=== PATIENT | male | born 1950 | race Caucasian/White ===

== ENCOUNTER → 2017-10-05 09:12 | Outpatient (POV) | payer OTHER, SELFPAY | PROVIDERS: Family Provider Nurse Practitioner Family; Visit Provider Dermatology | DX: Z00.00 Encounter for general adult medical examination without abnormal findings (principal) ==

== ENCOUNTER → 2017-11-14 11:00 | Outpatient (REF) | payer MEDICARE, SELFPAY | LOC: LAB 11:00 | PROVIDERS: Visit Provider Podiatrist | DX: B35.1 Tinea unguium (principal) | CPT/HCPCS: 87102; 87206; 87220 ==

== ENCOUNTER → 2018-02-21 13:57 | Outpatient (POV) | payer MEDICARE, SELFPAY | PROVIDERS: Family Provider Nurse Practitioner Family; PCP Family Medicine | DX: Z00.00 Encounter for general adult medical examination without abnormal findings (principal) ==

== ENCOUNTER → 2018-04-10 08:36 | Outpatient (CLI) | payer MEDICARE, SELFPAY ==
--- NOTE | 2018-04-10 08:40 | XR_ITS ---
XR foot wt bearing RT 3V HISTORY: ITS.REASON: pain ORDERING PHYSICIAN: Gela Tapia DPM PATIENT AGE: 67 years COMPARISON: None FINDINGS: There are mild hypertrophic changes of the distal aspect of the first metatarsal with some minimal subarticular cystic changes laterally and dorsally. Normal alignment. No fracture or dislocation. There is widening of the mid shaft of the third metatarsal consistent no fracture. Normal alignment. IMPRESSION: 1. Mild hypertrophic changes of the distal first metatarsal with small subarticular cyst. 2. Healed fracture of the third metatarsal
--- NOTE | 2018-04-10 08:40 | XR_ITS ---
XR foot wt bearing LT 3V HISTORY: ITS.REASON: pain ORDERING PHYSICIAN: Gela Tapia DPM PATIENT AGE: 67 years COMPARISON: None FINDINGS: There are minor osteoarthritic changes of the first metatarsophalangeal joint. A subarticular cyst is present involving the proximal and lateral aspect of the proximal phalanx of the great toe measuring 7 mm. Subarticular cystic changes also involve the distal aspect of the first metatarsal. No fracture or dislocation. No bony erosive process. IMPRESSION: Mild osteoarthritis of the first MTP joint with subarticular cysts
== END ==
PROVIDERS: PCP Family Medicine; Visit Provider Podiatrist
DX: M25.50 Pain in unspecified joint (principal)
CPT/HCPCS: 73630

== ENCOUNTER → 2019-02-07 12:57 | Outpatient (CLI) | payer MEDICARE, SELFPAY | PROVIDERS: Visit Provider Podiatrist | DX: B35.1 Tinea unguium (principal) | CPT/HCPCS: 87220 ==

== ENCOUNTER 2019-02-20 13:40 | Outpatient (RCR) | payer MEDICARE, SELFPAY ==
--- NOTE | 2019-02-20 14:56 | HMH.PTOPEV ---
PT Outpatient Evaluation Rehab PT Outpatient Evaluation Start: 02/20/19 13:53 Freq: Status: Active Protocol: Document 02/20/19 14:46 [place] (Rec: 02/20/19 14:55 [place] [id number]) Electronically Signed By Pepe Srivastava, PT 02/20/19 14:46 Outpatient Therapy Subjective History Subjective History Pt is 68 yowm who presents with c/o intermittent cervical spine and left UE pain/ tingling x ~ 6 mos. He reports symptoms are worse with cervical extension, especially desk work. He also reports symptoms in the left UE are limited to anterior elbow and feels like an uncomfortable itch mainly. He reports PMH of DDD, HL, hypothyroid, prior low back pain. Chief Complaint Pain,Paresthesia Symptom Type Ache,Tingling Symptoms Relieved By Rest/Positioning Symptoms Aggravated By Lifting Prior Functional Limitations None Current Functional Limitations Desk Work/Reading Symptom Description Activity Dependent Level of pain today (0-10) 0 Pain scale - at its worst (0-10) 2 Cervical Eval Flexibility Deficits Upper Trapezius Muscle Length (R) Mild Tightness,(L) Mild Tightness Passive Joint Mobility Cervical PIVM Dec: R C4/5 L C4/5 R C5/6 L C5/6 R C6/7 L C6/7 R C7/T1 L C7/T1 WNL: R OA L OA R AA L AA R C2/3 L C2/3 R C3/4 L C3/4 AROM Cervical Spine Extension Active Range of 0-60 Motion (degrees) Cervical Spine Flexion Active Range of 0-50 Motion (degrees) Cervical Spine Right Lateral Flexion 0-50 Active Range of Motion (degrees) Cervical Spine Left Lateral Flexion 0-45 Active Range of Motion (degrees) Cervical Spine Right Rotation Active 0-65 Range of Motion (degrees) Cervical Spine Left Rotation Active 0-60 Range of Motion (degrees) MMT Bilateral Deltoid (C5) 5 Normal Biceps Brachii Strength
== END 2019-02-20 13:45 | disposition home or self-care (01) ==
LOC: PT 13:40
PROVIDERS: Visit Provider Family Medicine
DX: M54.12 Radiculopathy, cervical region (principal)
CPT/HCPCS: 97163

== ENCOUNTER → 2019-03-01 14:38 | Outpatient (CLI) | payer SELFPAY ==
--- NOTE | 2019-03-01 14:46 | CT_ITS ---
PROCEDURE: CT HEART W CALCIUM SCORE CLINICAL HISTORY: SCREENING COMPARISON: No exams were available for comparison TECHNIQUE: Axial images obtained with sagittal and coronal reformats. All CT scans at the facility use one or more dose reduction, viz: automated exposure control, ma/kV adjustment per patient size (including targeted exams where dose is matched to indication, i.e. head), or iterative reconstruction technique. FINDINGS: The coronary artery calcium score is 732 indicating extensive plaque burden with very high cardiovascular disease risk. No pertinent incidental findings. IMPRESSION: Extensive plaque burden with very high cardiovascular disease risk Dictated by: Avila Parada MD 03/02/2019 06:25 Electronically signed by Avila Parada MD in [place] 03/02/2019 06:25
== END ==
PROVIDERS: PCP Family Medicine; Visit Provider Internal Medicine Cardiovascular Disease
DX: Z13.6 Encounter for screening for cardiovascular disorders (principal)
CPT/HCPCS: 75571

== ENCOUNTER → 2019-03-18 09:52 | Outpatient (CLI) | payer MEDICARE, SELFPAY ==
--- NOTE | 2019-03-18 | CA_ITS ---
APPROVED REPORT Exam: Exercise Treadmill Technologist: Di Brunner Ht: 5 ft 10 in Wt: 210 lbs BSA: 2.13 m2 HR: 73 bpm BP: 167/99 mmHg Indications: Chest pain, elevated calcium score Medical History Medications: Aspirin,,,,, Metoprolol,,,,, Synthroid,,,,, Vitamins,,,,, Prilosec,,,,, Crestor,,,,, ClonAZEPAM,,,,, Co Q10,,,,, Stress Test Details Test: Kike HR Resting HR: 84 bpm Max Heart Rate (APMHR): 154 bpm Max HR Achieved: 178 bpm Target HR (85% APMHR): 130 bpm % of APMHR: 115 Recovery HR: 96 bpm BP Resting BP: 167.0/99.0 mmHg Max BP: 177.0/95.0 mmHg Recovery BP: 161.0/94.0 mmHg ECG Clinical Exercise duration: 08:00 min Highest Stage Achieved: Exercise capacity: 10.1 METs Stress ECG Conclusion Resting ECG: Sinus Rhythm Kike Protocol completed. Patient exercised 8:00. Test stopped due to leg fatigue. Symptoms: Leg fatigue. No chest pain, or shortness of breath. Arrhythmias/Ectopy: Occasional PVC. Occasional PAC. ST-T Changes: Less than 1.[address] Depression. Conclusion: Images to follow. Electronically signed by : Pablito Vu, 03/18/2019 21:27:33
--- NOTE | 2019-03-18 09:54 | NM_ITS ---
APPROVED REPORT Exam: Nuclear Stress Test Indication: Chest pain, Palpitations, HTN, CAD, High Cholesterol, Family history Patient Location: Outpatient Stress Tech: Di Brunner [place] Tech:Josselin Rivero, ARRT, RT (R)(N) Ht: 5 ft 10 in Wt: 210 lbs HR: 73 bpm BP: 167/99 mmHg BSA: 2.13 m2 BMI: 30.1 History: Chest pain, Palpitations, HTN, CAD, High Cholesterol, Family history Procedure: Patient exercised on Kike protocol 8:00 minutes and sec, resting heart rate 73 bpm, resting blood pressure 148/87 mmHg, with exercise maximum heart rate achived was 178 bpm which is Greater than 85 % of the maximum predicted heart rate and blood pressure was 165/90 mmHg. Test was stopped due to leg fatigue. Patient denied any complaint of chest pain. Patient has Good exercise capacity, achieved 10.1 METs of workload on treadmill, the blood pressure response to exercise was Adequate.. Electrocardiogram Resting electrocardiogram showed sinus rhythm, with exercise there is less than 1.[address] segment depression noted from the baseline EKG. The EKG portion of the exercise Myoview is negative for ischemia. Cardiac Stress and Resting SPECT Images: Cardiac Stress and Resting SPECT images were obtained using technetium 99m Myoview 29.9 mCi stress and 10.37 mCi at rest. Gated SPECT with analysis of segmental wall motion and calculation of the ejection fraction also done. Cardiac stress and resting SPECT images show uniform myocardial activity without segmental perfusion abnormality, computer derived ejection fraction is over 65% with no regional wall motion abnormality, right ventricle is normal size and contractility. Conclusion: 1. The EKG portion of the exercise Myoview is negative for ischemia, patient has good exercise capacity achieved 10.1 mets of workload on treadmill, the blood pressure response to exercise was adequate, there was no exercise-induced chest discomfort. 2. No scintigraphic evidence of reversible ischemia seen, computer derived ejection fraction is over 65% with no regional wall motion abnormality, right ventricle is normal size and contractility. 3. Normal exercise Myoview study. Electronically signed by : Pablito Vu, 03/18/2019 21:30:14
--- NOTE | 2019-03-18 09:54 | CA_ITS ---
APPROVED REPORT EXAM: Comprehensive 2D, Doppler, and color-flow Echocardiogram Hoop Flaring Machine Operator: Socorro Zaragoza RVT Ht: 5 ft 10 in Wt: 212lbs BSA: 2.14 BP: 155/92 mmHg Indications: Chest Pain, CAD, Hyperlipidemia, Hypertension,Elevated calicum score 2D Dimensions LVOT 2.50 cm (M/F) 1.5-2.5 M-Mode Dimensions RVDd 1.50 cm (0.9-2.6) LA Diam 3.50 cm (1.9-4.0) LVDd 6.00 cm (3.5-5.7) Ao Diam 2.60 cm (2.0-3.7) LVDs 3.90 cm (3.5-5.7) AV Cusp 2.40 cm (1.5-2.6) IVSd 0.90 cm (0.6-1.1) PWd 0.90 cm (0.6-1.1) EF (Teich) 63.40% FS 35.00% EDV (Teich) 180.00 mL ESV (Teich) 65.90 mL LV Diastology E/A Ratio 0.8 MED E' 7.12 (< 7 cm/sec) E'/MED E' Ratio 9.10 (>14) LAT E' 9.55 (<10 cm/sec) E/LAT E' Ratio 6.80 (>14) Aortic Valve AoV Peak Lamont. 82.90 (50-130 cm/s) AO Peak GR. 3.00 mmHg Mitral Valve MV E Max Lamont. 64.70 (40-130 cm/s) MV A Velocity 79.00 (40-130 cm/s) E/A Ratio 0.80 Pulmonary Valve PA Accel Time 127.00 (>120 msec) Tricuspid Valve TR P. Velocity 289.00 cm/s Left Ventricle Left atrium is mildly enlarged, left ventricle is normal size, mild concentric left ventricular hypertrophy, visually estimated ejection fraction 55% with no regional wall motion abnormality, grade 1 diastolic dysfunction seen without tissue Doppler evidence of raise left atrial pressure. Right Ventricle Right atrium and right ventricular normal size and contractility. Aortic Valve Aortic valve is thickened and calcified leaflet continue to display good mobility, there is no aortic stenosis aortic insufficiency. Mitral Valve Mitral valve is grossly normal, there is mild mitral regurgitation. Tricuspid Valve Tricuspid valve is grossly normal, there is mild tricuspid regurgitation. Pulmonic Valve Pulmonic valve is poorly visualized. Great Vessels Aortic root is normal size. Pericardium No significant pericardial effusion noted. Conclusion 1. Mildly enlarged left atrium, normal left ventricular size, mild concentric left ventricular hypertrophy, visually estimated ejection fraction 55% with no regional wall motion abnormality, grade 1 diastolic dysfunction seen without tissue Doppler evidence of raise left atrial pressure. 2. Mild mitral and tricuspid regurgitation 3. No significant pericardial effusion noted. Electronically signed by : Pablito Vu, 03/19/2019 06:03:18
--- NOTE | 2019-03-18 12:39 | HMH.ITSHM ---
Current Home Medications as stated by this patient Ángel Farris or statement services representative. []METOPROLOL CRESTOR PRILOSEC SYNTHROID CLONAZEPAM ASA VITAMINS COQ10
[2019-03-18 12:54] LABS: Alanine Aminotransferase 38 U/L (12-78); Alkaline Phosphatase 44 U/L (46-116); Aspartate Amino Transferase 21 U/L (15-37); Bilirubin,Direct 0.1 mg/dL (0.0-0.2); Bilirubin,Indirect 0.4 mg/dL (0.0-0.9); Bilirubin,Total 0.5 mg/dL (0.2-1.0); Chol/HDL Ratio 3.6 (1-3.5); Cholesterol 146 mg/dL (140-200); HDL Cholesterol 41 mg/dL (27-67); LDL Cholesterol 80 mg/dL (0-130); Total Protein,Serum 6.6 gm/dL (6.4-8.2); Triglycerides 124 mg/dL (30-200); VLDL Cholesterol 25 mg/dL (0-40)
== END ==
PROVIDERS: PCP Family Medicine; Visit Provider Internal Medicine Cardiovascular Disease
DX: E78.5 Hyperlipidemia, unspecified (principal); G47.9 Sleep disorder, unspecified; I10 Essential (primary) hypertension; K21.9 Gastro-esophageal reflux disease without esophagitis; R06.83 Snoring; R07.89 Other chest pain; R40.0 Somnolence; R93.1 Abnormal findings on diagnostic imaging of heart and coronary circulation; R93.89 Abnormal findings on diagnostic imaging of other specified body structures; Z82.49 Family history of ischemic heart disease and other diseases of the circulatory system; R07.9 Chest pain, unspecified
CPT/HCPCS: 36415; 78452; 80061; 80076; 93017; 93306; A9502

== ENCOUNTER → 2019-03-19 13:23 | Outpatient (CLI) | payer MEDICARE, SELFPAY | PROVIDERS: PCP Family Medicine; Visit Provider Internal Medicine Cardiovascular Disease | DX: G47.33 Obstructive sleep apnea (adult) (pediatric) (principal) | CPT/HCPCS: 95806 ==

== ENCOUNTER → 2019-05-14 11:56 | Outpatient (POV) | payer MEDICARE, SELFPAY | PROVIDERS: Visit Provider Dermatology | DX: Z00.00 Encounter for general adult medical examination without abnormal findings (principal) ==

== ENCOUNTER → 2019-05-20 15:09 | Outpatient (CLI) | payer MEDICARE, SELFPAY | PROVIDERS: PCP Family Medicine; Visit Provider Urology | DX: G47.33 Obstructive sleep apnea (adult) (pediatric) (principal); I49.3 Ventricular premature depolarization; R94.31 Abnormal electrocardiogram [ECG] [EKG]; Z99.89 Dependence on other enabling machines and devices | CPT/HCPCS: 93270 ==

== ENCOUNTER → 2019-06-20 11:43 | Outpatient (CLI) | payer MEDICARE, SELFPAY ==
--- NOTE | 2019-06-20 11:58 | XR_ITS ---
PROCEDURE: XR RIBS LT MIN 3V W CXR1V CLINICAL INDICATION: LT RIB PAIN COMPARISON: CXR CHEST(2 VIEWS-NOT PORTABLE) from 05/05/2016 FINDINGS: A frontal view of the chest shows no acute finding. Multiple views of the left ribs were obtained. No acute findings. IMPRESSION: No acute findings. Dictated by: Avila Parada MD 06/20/2019 16:51 Electronically signed by Avila Parada MD in [place] 06/20/2019 16:51
== END ==
PROVIDERS: PCP Family Medicine; Visit Provider Nurse Practitioner Family
DX: R07.81 Pleurodynia (principal)
CPT/HCPCS: 71101

== ENCOUNTER → 2019-12-25 13:28 | Outpatient (POV) | payer MEDICARE, SELFPAY | DX: Z00.00 Encounter for general adult medical examination without abnormal findings (principal) ==

== ENCOUNTER → 2020-01-01 15:02 | Outpatient (POV) | payer MEDICARE, SELFPAY | DX: Z00.00 Encounter for general adult medical examination without abnormal findings (principal) ==

== ENCOUNTER → 2020-01-06 15:58 | Outpatient (CLI) | payer MEDICARE, SELFPAY ==
--- NOTE | 2020-01-06 16:05 | XR_ITS ---
PROCEDURE: XR LUMBAR SPINE MIN 4V CLINICAL INDICATION: ACUTE MIDLINE LOW BACK PAIN W/O SCIATICA COMPARISON: No exams were available for comparison FINDINGS: No fracture or dislocation. No lytic or blastic change. There is normal mineralization. There is degenerative disc disease in the lower thoracic and lumbar spine. This is worse at the L4-5 level. There is 3 mm anterolisthesis of L3. Facet arthritic changes are present from L2-S1. Other findings:None. IMPRESSION: Lumbar spondylosis with degenerative disc disease and facet arthritic change Dictated by: Avila Parada MD 01/06/2020 16:34 Electronically signed by Avila Parada MD in [place] 01/06/2020 16:34
== END ==
PROVIDERS: PCP Family Medicine; Visit Provider Nurse Practitioner Family
DX: M54.5 Low back pain (principal)
CPT/HCPCS: 72110

== ENCOUNTER → 2020-09-22 12:54 | Outpatient (POV) | payer MEDICARE, SELFPAY | PROVIDERS: Visit Provider Dermatology | DX: Z00.00 Encounter for general adult medical examination without abnormal findings (principal) ==

== ENCOUNTER → 2020-10-28 14:38 | Outpatient (CLI) | payer MEDICARE, SELFPAY | PROVIDERS: Visit Provider Internal Medicine Gastroenterology | DX: Z01.812 Encounter for preprocedural laboratory examination (principal); Z20.822 Contact with and (suspected) exposure to COVID-19; Z12.11 Encounter for screening for malignant neoplasm of colon | CPT/HCPCS: U0003 ==

== ENCOUNTER 2020-10-30 07:03 | Day surgery (SDC) | payer MEDICARE, SELFPAY ==
[2020-10-21 13:08] VITALS: BMI 30.2
[2020-10-30] VITALS (9 sets, daily range): BP systolic 92–155; BP diastolic 65–92; PULSE 55–69; RESP 16–18; TEMP 36.3–36.7; O2SAT 93–99
--- NOTE | 2020-10-30 08:05 | P.PN_ITS ---
[facility] Anesthesia Checklist - Structural Data Admitted From: Home Planned Operative Procedure/s: colonoscopy Consent for Planned Operative Procedure(s) Verified: Yes - Airway Assessment C-Spine Mobility Assessed: Yes TMJ Mobility Assessed: Yes Dentition: Good Dentition - Neurological Assessment Level of Consciousness: Awake, Alert, Appropriate - Anesthesia Plan Anesthesia Risk discussed: Yes Anesthesia Plan: Verified ASA Class: II Anesthesia Type: MAC [facility] History I have reviewed the patient's past medical history: Yes Medical History: Reports:: Arrhythmia, Cancer (skin/nose), Congenital Heart Disease, Gastroesophageal Reflux Disease(GERD), Hyperlipidemia, Hypertension Denies:: Diabetes Mellitus Type 1, Diabetes Mellitus Type 2, Internal Pacemaker, MRSA, Seizures *Have you ever received a pneumonia vaccine?: Yes *Have you received a flu vaccine this season?: Yes Other Medical History: Reports: Thyroid Disease Anesthesia experience/problems:: none Other Surgeries: Yes: No Previous Surgery, Colonoscopy. No: Pacemaker Amputation: No Fractures: No - *Social History Last grade of school completed: Advanced degree Smoking Status: Never smoker # Packs/Day (cigarettes): 0 #Yrs smoked (if former smoker): 0 Alcohol Intake: never Alcohol Intake Frequency:: a few times a month Substance Use Type: denies use *Occupational Status:: retired Housing: house Household Members: spouse *Travel in the last 8 weeks: Inside the [place] Family Hx:: Coronary Artery Disease, Heart Attack
--- NOTE | 2020-10-30 08:07 | P.PCN_ITS ---
[facility] Procedure Note Procedure Note:: Colonoscopy Procedure Report: Colonoscopy Endoscopist: Olegario Dalton II, MD Referring physician: Antoine Fernandez MD Date of Procedure: October 30, 2020 Equipment: Olympus 190 variable stiffness pediatric colonoscope Sedation: MAC sedation Indication: Mr. Farris is a 70-year-old gentleman who is here for follow-up screening/surveillance colonoscopy. The patient had a colonoscopy 12 years ago and 7 years ago (in [facility] with Dr. Evan Shah DO) and each time had a diminutive polyp removed. The last time this was non-adenomatous (mucosal prolapse polyp). The patient does have some gassiness and rumbling with minor bloating. He does have intermittent hemorrhoidal issues. He reports no abdom inal pain, weight loss, change in his bowel habits or rectal bleeding. He reports no family history of colon cancer. Procedure: Prior to the procedure, a history and physical exam was performed, and patient's medications and allergies were reviewed. The risks, benefits and alternatives of the sedation and procedure were discussed with the patient. All questions were answered and informed consent was obtained. The patient was brought to the procedure room. Patient identification and proposed procedure were verified by the physician and the nurse. The patient was placed in a left lateral decubitus position and the scope was passed under direct vision. Throughout the procedure, the patient's blood pressure, pulse, and oxygen saturations were monitored continuously. The colonoscopy was accomplished without difficulty. The patient tolerated the procedure well. Findings: On digital rectal examination there was normal rectal tone. There were no external hemorrhoids. The prostate was 2+, very mildly firm but smooth, symmetric without nodules. The colonoscope was introduced through the anal canal to the rectum and advanced to the cecum. The ileocecal valve and appendiceal orifice were identified. The scope was advanced a short distance into the ileum which appeared grossly normal. The scope was then withdrawn into the colon. The cecum, ascending and transverse colon and mucosa were grossly normal. There were mildly scattered diverticuli throughout the descending and sigmoid colon (LEFT colon). The rectum itself was normal. Upon retroflexion within the rectum there were grade 1-2 internal hemorrhoids. The preparation was excellent throughout with [place] Preparation Score of 9. The cecal time was 10 minutes. Impression: 1. Mild left-sided diverticulosis 2. Grade 1-2 internal hemorrhoids Plan: The patient will not require screening/surveillance colonoscopy again for 10 years by [facility] guidelines. I would encourage fiber supplementation on a long-term daily maintenance basis.
== END 2020-10-30 09:30 | disposition home or self-care (01) ==
LOC: OUTP 07:05
PROVIDERS: PCP Family Medicine; Visit Provider Internal Medicine Gastroenterology
PROC: 0DJD8ZZ Inspection of Lower Intestinal Tract, Via Natural or Artificial Opening Endoscopic (ICD-10-PCS; CPT 45378; principal; 2020-10-30 08:00)
DX: Z12.11 Encounter for screening for malignant neoplasm of colon (principal); Z86.010 Personal history of colon polyps; K57.30 Diverticulosis of large intestine without perforation or abscess without bleeding; K64.0 First degree hemorrhoids; I49.9 Cardiac arrhythmia, unspecified; Z85.828 Personal history of other malignant neoplasm of skin; I51.9 Heart disease, unspecified; K21.9 Gastro-esophageal reflux disease without esophagitis; E78.5 Hyperlipidemia, unspecified; I10 Essential (primary) hypertension; E07.9 Disorder of thyroid, unspecified; Z79.899 Other long term (current) drug therapy
CPT/HCPCS: G0105

== ENCOUNTER → 2021-09-07 09:31 | Outpatient (CLI) | payer MEDICARE, SELFPAY ==
--- NOTE | 2021-09-07 09:34 | CA_ITS ---
FINAL REPORT TECHNIQUE: Color Doppler, duplex Doppler and bhatti scale sonography of the bilateral neck arterial vasculature was performed. Velocities were measured in the carotid arteries. Stenosis evaluation based on the validated velocity criteria. CLINICAL HISTORY: SYNCOPE,HTN,HLD FINDINGS: The peak systolic velocity of the right common carotid artery is 121 cm/s. The peak systolic velocity of the right internal carotid artery is 124 cm/s and end diastolic velocity 41 cm/s. The ICA/CCA ratio is 1.17. A small amount of plaque is present. The right external carotid artery is patent. The right vertebral artery is patent with antegrade flow. The peak systolic velocity of the left common carotid artery is 140 cm/s. The peak systolic velocity of the left internal carotid artery is 66 cm/s and end diastolic velocity 24 cm/s. The ICA/CCA ratio is 0.65. A small amount of plaque is present. The left external carotid artery is patent.The left vertebral artery is patent with antegrade flow. IMPRESSION: Less than 50% bilateral carotid stenoses. Bilateral patent vertebral arteries with antegrade flow. If indicated, CTA or MRA could further evaluate. Reviewed, Interpreted and Dictated by Luan Martinez III, MD Transcribed by Nara Glass Authenticated by Luan Martinez III, MD on 09/07/2021 11:29:51 AM [facility]
== END ==
PROVIDERS: PCP Nurse Practitioner Family; Visit Provider Nurse Practitioner Family
DX: R55 Syncope and collapse (principal); I10 Essential (primary) hypertension; E78.5 Hyperlipidemia, unspecified
CPT/HCPCS: 93880

== ENCOUNTER → 2021-09-29 13:55 | Outpatient (CLI) | payer MEDICARE, SELFPAY ==
--- NOTE | 2021-09-29 13:56 | CT_ITS ---
FINAL REPORT CLINICAL HISTORY: cheng FINDINGS: Thin section axial CT with IV contrast supplemented with multiplanar reconstruction under CT angiogram protocol. This study was performed with techniques to keep radiation doses as low as reasonably achievable (ALARA). Individualized dose reduction techniques using automated exposure control or adjustment of mA and/or kV according to the patient's size were employed. NASCET criteria was utilized during interpretation. There is no cervical mass or adenopathy. There is lobular mucoperiosteal thickening in the left maxillary sinus. Aortic arch: Arch shows no significant narrowing. Great vessel origins are widely patent. Right carotid: No significant stenosis is seen of the cervical common or internal carotid artery. Left carotid: No significant stenosis is seen of the cervical common or internal carotid artery. Vertebral: Left vertebral artery is dominant. No significant stenosis is present. IMPRESSION: No significant stenosis. Reviewed, Interpreted and Dictated by Moe Pena MD Transcribed by Francisco Mast Authenticated by Moe Pena MD on 09/29/2021 06:04:14 PM [facility]
== END ==
PROVIDERS: PCP Nurse Practitioner Family; Visit Provider Physician Assistant
DX: I25.10 Atherosclerotic heart disease of native coronary artery without angina pectoris (principal)
CPT/HCPCS: 70498; Q9967

== ENCOUNTER → 2022-05-03 10:12 | Outpatient (POV) | payer MEDICARE, SELFPAY | PROVIDERS: Visit Provider Dermatology | DX: Z00.00 Encounter for general adult medical examination without abnormal findings (principal) ==

== ENCOUNTER → 2023-01-24 13:04 | Outpatient (CLI) | payer MEDICARE, SELFPAY ==
--- NOTE | 2023-01-24 13:08 | XR_ITS ---
FINAL REPORT CLINICAL HISTORY: ACUTE PAIN, CLICKING, ACHEY FINDINGS: Left knee Three views were obtained. There is no acute fracture or dislocation. The joint spaces appear normal. No joint effusion is identified. No soft tissue abnormality is identified. IMPRESSION: No acute process. Reviewed, Interpreted and Dictated by Moe Pena MD Transcribed by Nara Glass Authenticated and [facility]
== END ==
PROVIDERS: PCP Nurse Practitioner Family; Visit Provider Nurse Practitioner Family
DX: M25.562 Pain in left knee (principal)
CPT/HCPCS: 73562

== ENCOUNTER 2023-08-30 13:30 | Outpatient (CLI) | payer MEDICARE, SELFPAY ==
[2023-08-30 14:04] LABS: Basophils % 0.8 % (0.1-2.0); Eosinophils # 0.2 K/mm3 (0.0-0.4); Eosinophils % 3.3 % (0.1-12.0); Hematocrit 52.6 % (42.0-52.0); Hemoglobin 17.1 g/dL (14.1-18.0); Lymphocytes # 1.6 K/mm3 (0.7-4.5); Lymphocytes % 33.9 % (10-50); Mean Corpuscular HGB Conc 32.5 g/dL (31.8-35.4); Mean Corpuscular Hemoglobin 32.7 pg (27.0-31.2); Mean Corpuscular Volume 100.6 fl (80-94); Mean Platelet Volume 9.3 fl (7.4-10.4); Monocytes # 1.1 K/mm3 (0.1-1.0); Monocytes % 22.7 % (1.7-9.3); Neutrophils # 1.9 K/mm3 (1.8-7.8); Neutrophils % 39.3 % (37.0-80.0); Platelet Count 166 K/mm3 (142-424); Red Blood Count 5.23 M/mm3 (4.60-6.20); Red Cell Distribution Width 13.2 % (11.5-17.5); White Blood Count 4.8 K/mm3 (4.8-10.8)
[2023-08-30 14:07] LABS: MANUAL DIFFERENTIAL MANUAL DIFFERENTIAL (MANUAL DIFF)
[2023-08-30 14:24] LABS: Chloride 106 mmol/L (98-107); Potassium 4.3 mmoL/L (3.5-5.1); Sodium 140 mmol/L (136-145)
[2023-08-30 14:26] LABS: Blood Urea Nitrogen 12 mg/dl (9-20); Estimated Glomerular Filt Rate 83 ml/min (>60); GFR (African American) 101 ML/MIN (>60)
[2023-08-30 14:27] LABS: Alanine Aminotransferase 48 U/L (12-78); Albumin Level 4.4 g/dl (3.5-5.0); Albumin/Globulin Ratio 2.3 (1.1-1.8); Alkaline Phosphatase 51 U/L (38-126); Anion Gap 9.3 mEq/L (5-15); Aspartate Amino Transferase 41 U/L (17-59); Bilirubin,Total 0.6 mg/dl (0.2-1.3); Calcium 9.3 mg/dl (8.4-10.2); Carbon Dioxide 29 mmol/L (22.0-30.0); Cholesterol 169 mg/dl (140-200); Globulin 1.9 g/dL (1.3-3.2); Glucose 90 mg/dl (74-100); Total Protein,Serum 6.3 g/dl (6.3-8.2); Triglycerides 174 mg/dl (30-150); VLDL Cholesterol 35 mg/dL (0-40)
[2023-08-30 14:28] LABS: Chol/HDL Ratio 4.6 (1-3.5); HDL Cholesterol 37 mg/dl (40-60)
[2023-08-30 14:39] LABS: Direct LDL Cholesterol 87.95 mg/dL (100-129)
[2023-08-30 14:43] LABS: Free T4 (Free Thyroxine) 1.27 ng/dl (0.78-2.19)
[2023-08-30 14:59] LABS: Thyroid Stimulating Hormone 0.68 uIU/mL (0.465-4.68)
[2023-08-30 15:29] LABS: Eosinophils % 4 % (0-3); Lymphocytes % 30 % (10-50); Monocytes % 9 % (2-9); Neutrophils % 57 % (42-76); Total Cells Counted 100
[2023-08-30 15:30] LABS: Platelet Estimate Normal; RBC Morphology Normal
[2023-08-31 10:59] LABS: HCV Ab Non Reactive (Non Reactive)
== END 2023-08-30 23:59 ==
LOC: LAB.DROPOF 13:31
PROVIDERS: PCP Internal Medicine; Visit Provider Internal Medicine
DX: R40.0 Somnolence; I25.10 Atherosclerotic heart disease of native coronary artery without angina pectoris; Z13.220 Encounter for screening for lipoid disorders; E03.9 Hypothyroidism, unspecified; Z13.29 Encounter for screening for other suspected endocrine disorder; Z12.5 Encounter for screening for malignant neoplasm of prostate; Z11.59 Encounter for screening for other viral diseases; Z91.89 Other specified personal risk factors, not elsewhere classified; H91.90 Unspecified hearing loss, unspecified ear; Z79.899 Other long term (current) drug therapy
CPT/HCPCS: 80053; 80061; 84439; 84443; 85007; 85025; G0103

== ENCOUNTER 2023-10-04 10:21 | Outpatient (POV) | payer MEDICARE, SELFPAY | END 2023-10-04 23:59 | disposition home or self-care (01) | LOC: SC 10:21 | PROVIDERS: Visit Provider Specialist/Technologist | DX: Z00.00 Encounter for general adult medical examination without abnormal findings (principal) ==

== ENCOUNTER 2023-10-09 07:17 | Outpatient (CLI) | payer MEDICARE, SELFPAY ==
--- NOTE | 2023-10-09 07:18 | NM_ITS ---
APPROVED REPORT Exam: Nuclear Stress Test Indication: Chest pain, HTN, High cholesterol, Family history Patient Location: Outpatient Stress Tech: Di Brunner [place] Tech:Josselin Rivero, ARRT, RT (R)(N) Ht: 5 ft 10 in Wt: 207 lbs HR: 72 bpm BP: 149/92 mmHg BSA: 2.12 m2 TID: 1.26 BMI: 29.6 History: Chest pain, HTN, High cholesterol, Family history Procedure: Patient exercised on Kike protocol 8:40 minutes and sec, resting heart rate 72 bpm, resting blood pressure 149/92 mmHg, with exercise maximum heart rate achived was 137 bpm which is 92 % of the maximum predicted heart rate and blood pressure was 180/88 mmHg. Test was stopped due to SOB. Patient denied any complaint of chest pain. Patient has exercise capacity, achieved 10.1 METs of workload on treadmill, the blood pressure response to exercise was . Cardiac Stress and Resting SPECT Images: Cardiac Stress and Resting SPECT images were obtained using technetium 99m Myoview 30.7 mCi stress and 10.31 mCi at rest. Resting and stress imaging in supine and prone positions demonstrate a medium sized, moderate, fixed perfusion defect in the basal to mid inferior LV wall. There is increased transient ischemic dilatation ratio (TID 1.26), suggestive of possible multivessel disease or balanced ischemia. Gated imaging demonstrates low-normal global LV systolic function. There is mild hypokinesis of the basal inferior LV wall. LVEF is calculated at 52%. Conclusion: Medium sized, moderate, fixed perfusion defect in the basal to mid inferior LV wall. There is increased transient ischemic dilatation ratio (TID 1.26), suggestive of possible multivessel disease or balanced ischemia. Gated imaging demonstrates low-normal global LV systolic function. There is mild hypokinesis of the basal inferior LV wall. LVEF is calculated at 52%. Electronically signed by : Lorena Reaves MD 10/11/2023 11:26:03
[2023-10-09] MEDS: SODIUM CHLORIDE 0.9% 10ML SYR (RAD ONLY) 10 ML IV ×2 (09:18)
[2023-10-09] MEDS: ISOTOPE MYOVIEW (PER STUDY) 1 DOSE IV (09:18)
--- NOTE | 2023-10-09 09:32 | CA_ITS ---
APPROVED REPORT Exam: Exercise Treadmill Technologist: Di Brunner Ht: 5 ft 10 in Wt: 213 lbs BSA: 2.14 m2 HR: 65 bpm BP: 149/92 mmHg Rhythm: NSR Indications: Chest pain, CAD Medical History Medications: Omeprazole,,,,, Levothyroxine,,,,, Aspirin,,,,, Vitamin D3,,,,, Metoprolol Succinate,,,,, ClonAZEPAM,,,,, Flaxseed Oil,,,,, Magnesium,,,,, Nitroglycerin,,,,, MeLATONIN,,,,, RoSUVASTATIN,,,,, SilDENAFIL,,,,, Stress Test Details Test: Kike HR Resting HR: 72 bpm Max Heart Rate (APMHR): 149 bpm Max HR Achieved: 137 bpm Target HR (85% APMHR): 127 bpm % of APMHR: 92 Recovery HR: 71 bpm HR response to stress: Normal HR response to stress BP Resting BP: 149.0/92.0 mmHg Max BP: 180.0/88.0 mmHg Recovery BP: 155.0/76.0 mmHg BP response to stress: Normal blood pressure response to stress. ECG Resting ECG: Normal sinus rhythm Stress EC mm horizontal ST depression Arrhythmia: PACs Recovery ECG: Return to baseline within 3 minutes of recovery Recovery Arrhythmia: PACs Clinical Exercise duration: 08:40 min Highest Stage Achieved: Exercise capacity: 10.1 METs Overall Exercise Capacity for Age: Good Stress ECG Conclusion The patient was able to exercise for a total of 8 minutes, 40 seconds. He achieved a total of 10.1 METS. He has good exercise capacity compared to age and sex matched peers. He has normal HR and BP response to exercise. Symptoms: Mild chest pain Arrhythmias/Ectopy: Occasional PACs ST-T Changes: [address] depression Conclusion: Good exercise capacity. ECG changes suggestive of ischemia at peak stress. Myoview images reported separately. Test Summary REST . . . . . . . Sitting REST . . . . . . . Standing REST 02:58 0.0 0.0 72 . 149/ 92 . . Stage 1 01:00 10.0 1.7 91 . . . . Stage 1 02:00 10.0 1.7 93 . . . . Stage 1 02:50 10.0 1.7 94 . 140/ 86 . . Stage 2 01:00 12.0 2.5 102 . . . . Stage 2 02:00 12.0 2.5 113 . . . . Stage 2 03:00 12.0 2.5 121 . 150/ 90 . . Stage 3 . . . . . . . Myoview Injected Stage 3 01:00 14.0 3.4 128 . . . . Stage 3 . . . . . . . Chest pain Stage 3 02:00 14.0 3.4 134 . . . . Stage 3 02:50 14.0 3.4 135 . 170/ 90 . Stop exercise at 08:40 RECOVERY 01:00 0.0 0.0 113 . 180/ 88 . . RECOVERY 02:00 0.0 0.0 104 . 180/ 88 . . RECOVERY 03:00 0.0 0.0 102 . 156/ 88 . . RECOVERY 04:00 0.0 0.0 74 . 156/ 88 . . RECOVERY 05:00 0.0 0.0 82 . 150/ 86 . . RECOVERY 06:00 0.0 0.0 76 . 150/ 86 . . RECOVERY 06:42 0.0 0.0 72 . 155/ 78 . . Electronically signed by : Lorena Reaves MD 10/11/2023 11:24:54
== END 2023-10-09 23:59 | disposition home or self-care (01) ==
LOC: RAD 07:18
PROVIDERS: PCP Nurse Practitioner Family; Visit Provider Physician Assistant
DX: I25.10 Atherosclerotic heart disease of native coronary artery without angina pectoris (principal)
CPT/HCPCS: 78452; 93017; 93018; A9502

== ENCOUNTER 2023-10-19 08:54 | Day surgery (SDC) | payer MEDICARE, SELFPAY ==
[2023-10-19] VITALS (14 sets, daily range): BP systolic 110–137; BP diastolic 72–97; PULSE 52–66; RESP 17–20; TEMP 36.6; O2SAT 96–100; BMI 30.4
--- NOTE | 2023-10-19 07:28 | IR_ITS ---
APPROVED REPORT Patient Location: Outpatient Crawler Tractor Operator: DIMPLE Estrada RT (R) PROCEDURES Left heart catheterization Left ventriculogram Selective coronary angiogram Drug-eluting stent deployment to the proximal and mid dominant circumflex artery Drug-eluting stent deployment to the mid LAD INDICATION Coronary artery disease, Accelerated angina pectoris, Abnormal CCTA Informed consent was obtained prior to the procedure. COMPLICATIONS NONE Estimated Blood Loss: LESS THAN 10 ML TECHNIQUE One percent lidocaine used to anesthetize the right anterior aspect of the wrist. The right radial artery was accessed via the Seldinger technique. A 6 Namibian sheath was placed in the right radial artery. 2.5 mg of Verapamil, 800 mcg of nitroglycerin, 1mg Lidocaine and 5000 U Heparin were given through the arterial sheath. The papa catheter was also used to perform left heart catheterization, left ventriculogram and selective coronary angiogram. At the end the diagnostic angiogram therapeutic heparin was administered giving a therapeutic ACT and the guide catheter was placed in the left main artery followed by Choice PT to support wire down the circumflex artery. A 3.5 x 38 mm Pavan frontier stent was deployed at 16 yessica reducing the severe tandem stenosis to 0%. SESAR-3 flow was present before and after the procedure. An additional wire was placed down the LAD and an additional 3 mm x 38 mm Pavan frontier stent was placed in the mid LAD and deployed at 14 yessica reducing the severe stenosis to 0%. SESAR-3 flow was present before and after the procedure. At the end procedure the apparatus was removed the sheath was removed and hemostasis was achieved using TR banding patient was transferred to the postop holding in stable condition ANGIOGRAPHIC RESULTS The left main artery Normal The left anterior descending artery Has proximal 20 to 30% stenosis with mid vessel tandem 60 to 70% stenosis with an additional 50% stenosis followed by an additional eccentric 40% stenosis. The distal LAD is widely patent free of disease. A large diagonal artery is widely patent. The circumflex artery Is nondominant yet still large and has tandem 70% mid vessel stenoses The right coronary artery Dominant and has proximal and mid vessel 30 and 20% stenosis The GARCIA ventriculogram reveals Normal 60% The left ventricular end-diastolic pressure 15 mmHg IMPRESSION Severe two-vessel coronary artery disease involving the mid LAD and proximal to mid large nondominant circumflex artery Successful stenting of a large nondominant circumflex artery severe disease reduced to 0% with 1 drug-eluting stent Successful stenting of the mid LAD severe disease reduced to 0% with 1 drug-eluting stent Normal ejection fraction Normal left ventricular end-diastolic pressure PLAN 1. Effient 10 mg daily plus aspirin 81 mg daily 2. LDL less than 55 to achieve that high intensity statin 3. Avoidance of tobacco products 4. Risk factor modification 5. Cardiac rehabilitation Electronically signed by : Axel You MD 10/19/2023 12:44:18
[2023-10-19 09:20] LABS: Basophils # 0.1 K/mm3 (0-0.2); Eosinophils # 0.4 K/mm3 (0.0-0.4); Eosinophils % 6.6 % (0.1-12.0); Hematocrit 50.4 % (42.0-52.0); Hemoglobin 16.6 g/dL (14.1-18.0); Lymphocytes # 1.3 K/mm3 (0.7-4.5); Lymphocytes % 24.8 % (10-50); Mean Corpuscular HGB Conc 32.9 g/dL (31.8-35.4); Mean Corpuscular Hemoglobin 32.3 pg (27.0-31.2); Mean Corpuscular Volume 98.2 fl (80-94); Mean Platelet Volume 8.9 fl (7.4-10.4); Monocytes # 0.4 K/mm3 (0.1-1.0); Monocytes % 7.3 % (1.7-9.3); Neutrophils # 3.2 K/mm3 (1.8-7.8); Neutrophils % 60.4 % (37.0-80.0); Platelet Count 146 K/mm3 (142-424); Red Blood Count 5.13 M/mm3 (4.60-6.20); Red Cell Distribution Width 13.2 % (11.5-17.5); White Blood Count 5.3 K/mm3 (4.8-10.8)
[2023-10-19 09:34] LABS: Blood Urea Nitrogen 15 mg/dl (9-20); Calcium 9.2 mg/dl (8.4-10.2); Carbon Dioxide 26 mmol/L (22.0-30.0); Chloride 105 mmol/L (98-107); Creatinine Clearance Estimated 92 mL/min (50-200); Estimated Glomerular Filt Rate 83 ml/min (>60); GFR (African American) 101 ML/MIN (>60); Glucose 99 mg/dl (74-100); Sodium 140 mmol/L (136-145)
[2023-10-19] MEDS: 0.9 % SODIUM CHLORIDE 500 ML 25 ML IV (11:20)
[2023-10-19] MEDS: HEPARIN 1,000 UNITS/500ML NS (CATH LAB) 3000 UNIT IV (11:20)
[2023-10-19] MEDS: VERAPAMIL 2.5MG/ML 2ML VIAL 2.5 MG IV (11:21)
[2023-10-19] MEDS: LIDOCAINE 1% 10ML MDV 20 ML IJ (11:21)
[2023-10-19] MEDS: HEPARIN 1,000 UNITS/ML 10ML VIAL (CATH LAB) 10000 UNIT IV (11:21)
[2023-10-19] MEDS: NITROGLYCERIN 800MCG/8ML SYR (CATH LAB) 800 MCG IA (11:21)
[2023-10-19] MEDS: MIDAZOLAM HCL 1MG/1ML 5ML VIAL 1 MG IV (12:00)
[2023-10-19] MEDS: FENTANYL 100MCG/2ML VIAL 50 MCG IV (12:00)
[2023-10-19] MEDS: IOPAMIDOL-370 (76%);100ML BOTTLE 130 ML IV (12:53)
[2023-10-19 12:56] LABS: CATHL Activated Clotting Time > 400 SEC (74-125)
== END 2023-10-19 15:12 | disposition home or self-care (01) ==
PROVIDERS: PCP Nurse Practitioner Family; Visit Provider Internal Medicine
DX: I25.118 Atherosclerotic heart disease of native coronary artery with other forms of angina pectoris (principal); G47.33 Obstructive sleep apnea (adult) (pediatric); Z99.89 Dependence on other enabling machines and devices; R93.1 Abnormal findings on diagnostic imaging of heart and coronary circulation; Z82.49 Family history of ischemic heart disease and other diseases of the circulatory system; E78.5 Hyperlipidemia, unspecified; I10 Essential (primary) hypertension; K21.9 Gastro-esophageal reflux disease without esophagitis; R94.39 Abnormal result of other cardiovascular function study; Z79.899 Other long term (current) drug therapy
CPT/HCPCS: 80048; 85025; 85347; 92928; 93458; 99152; 99153; C1725; C1769; C1874; C1876; C9600; J1644; Q9967

== ENCOUNTER 2023-10-20 14:20 | Outpatient (CLI) | payer MEDICARE, SELFPAY ==
[2023-10-20 15:02] LABS: Basophils # 0.1 K/mm3 (0-0.2); Basophils % 0.7 % (0.1-2.0); Eosinophils # 0.4 K/mm3 (0.0-0.4); Eosinophils % 6.1 % (0.1-12.0); Hematocrit 48.6 % (42.0-52.0); Hemoglobin 16.2 g/dL (14.1-18.0); Lymphocytes # 1.5 K/mm3 (0.7-4.5); Lymphocytes % 24.9 % (10-50); Mean Corpuscular HGB Conc 33.3 g/dL (31.8-35.4); Mean Corpuscular Hemoglobin 32.5 pg (27.0-31.2); Mean Corpuscular Volume 97.5 fl (80-94); Mean Platelet Volume 9.3 fl (7.4-10.4); Monocytes # 0.4 K/mm3 (0.1-1.0); Monocytes % 6.6 % (1.7-9.3); Neutrophils # 3.8 K/mm3 (1.8-7.8); Neutrophils % 61.6 % (37.0-80.0); Platelet Count 148 K/mm3 (142-424); Red Blood Count 4.98 M/mm3 (4.60-6.20); Red Cell Distribution Width 13.2 % (11.5-17.5); White Blood Count 6.1 K/mm3 (4.8-10.8)
[2023-10-20 15:06] LABS: Chloride 106 mmol/L (98-107)
[2023-10-20 15:07] LABS: Potassium 4.2 mmoL/L (3.5-5.1); Sodium 140 mmol/L (136-145)
[2023-10-20 15:09] LABS: Alanine Aminotransferase 43 U/L (12-78); Albumin Level 4.2 g/dl (3.5-5.0); Albumin/Globulin Ratio 2.1 (1.1-1.8); Alkaline Phosphatase 43 U/L (38-126); Anion Gap 12.2 mEq/L (5-15); Aspartate Amino Transferase 37 U/L (17-59); Bilirubin,Total 0.5 mg/dl (0.2-1.3); Blood Urea Nitrogen 14 mg/dl (9-20); Carbon Dioxide 26 mmol/L (22.0-30.0); Estimated Glomerular Filt Rate 83 ml/min (>60); GFR (African American) 101 ML/MIN (>60); Total Protein,Serum 6.2 g/dl (6.3-8.2)
[2023-10-20 15:10] LABS: Calcium 9.5 mg/dl (8.4-10.2); Glucose 87 mg/dl (74-100)
== END 2023-10-20 23:59 | disposition home or self-care (01) ==
LOC: LAB 14:21
PROVIDERS: PCP Nurse Practitioner Family; Visit Provider Internal Medicine
DX: I25.10 Atherosclerotic heart disease of native coronary artery without angina pectoris (principal); Z98.61 Coronary angioplasty status
CPT/HCPCS: 36415; 80053; 85025

== ENCOUNTER 2023-11-09 09:56 | Outpatient (RCR) | payer MEDICARE, SELFPAY | END 2023-11-27 09:00 | disposition home or self-care (01) | LOC: PT 09:56 | PROVIDERS: Visit Provider Internal Medicine | DX: I25.10 Atherosclerotic heart disease of native coronary artery without angina pectoris (principal); Z95.5 Presence of coronary angioplasty implant and graft | CPT/HCPCS: 93798 ==

== ENCOUNTER 2023-11-27 12:29 | Outpatient (CLI) | payer MEDICARE, SELFPAY ==
--- NOTE | 2023-11-27 12:33 | XR_ITS ---
FINAL REPORT CLINICAL HISTORY: left shoulder pain FINDINGS: LEFT SHOULDER 3 views of the left shoulder were obtained. There is no acute fracture or dislocation. Visualized joint spaces are normally aligned. Soft tissues are unremarkable. IMPRESSION: No acute bony abnormality. Reviewed, Interpreted and Dictated by Roxann Leach MD Transcribed by Marika Fox Authenticated and [facility][1]
--- NOTE | 2023-11-27 12:33 | XR_ITS ---
FINAL REPORT CLINICAL HISTORY: cervical neck pain, left arm numbness FINDINGS: CERVICAL SPINE SERIES Three views demonstrate no acute fracture. The disc spaces are well preserved. There is mild diffuse degenerative disc disease with spondylosis. The vertebral body demonstrates normal height.. There is no malalignment. IMPRESSION: No acute process. Reviewed, Interpreted and Dictated by Roxann Leach MD Transcribed by Marika Fox Authenticated and [facility]
--- NOTE | 2023-11-27 12:33 | XR_ITS ---
FINAL REPORT CLINICAL HISTORY: left upper arm pain FINDINGS: Two views show no evidence of an acute, displaced fracture or dislocation of the visualized bony architecture. The joint spaces appear normal. IMPRESSION: Unremarkable exam. Reviewed, Interpreted and Dictated by Roxann Leach MD Transcribed by Marika Fox Authenticated and . [facility]
== END 2023-11-27 23:59 | disposition home or self-care (01) ==
LOC: RAD 12:31
PROVIDERS: PCP Nurse Practitioner Family; Visit Provider Nurse Practitioner Family
DX: M79.622 Pain in left upper arm (principal); M54.2 Cervicalgia; M25.512 Pain in left shoulder
CPT/HCPCS: 72040; 73030; 73060

== ENCOUNTER 2023-12-18 16:35 | Outpatient (CLI) | payer MEDICARE, SELFPAY ==
--- NOTE | 2023-12-18 16:35 | MR_ITS ---
FINAL REPORT TECHNIQUE: Multiplanar and multisequence imaging of the shoulder was obtained without contrast. CLINICAL HISTORY: Left shoulder pain left upper arm pain. Left COMPARISON: None. FINDINGS: Bones and joints: There is no acute fracture, edema, or pathologic marrow replacement. Acromioclavicular joint degenerative disease is present and there is osteophytosis which narrows the supraspinatus outlet. Rotator cuff: There are partial-thickness, articular sided tears of both the supraspinatus and infraspinatus tendon. Both are less than 50% tendon thickness. The supraspinatus tear, however, demonstrates intratendinous extension. The subscapularis tendon is intact. There is no fatty atrophy of the rotator cuff musculature. Labrum: The biceps labral complex is intact. There is subtle irregularity of the posterior, inferior labrum without linear defect. The inferior glenohumeral ligament is intact. The biceps tendon is without tear. Other: There is no significant joint effusion. IMPRESSION: 1. Partial-thickness, articular sided supraspinatus and infraspinatus tears of less than 50% tendon thickness. No full-thickness rotator cuff tendon tear. 2. Subtle irregularity of the posterior, inferior labrum without linear defect. This could be degenerative labral changes. 3. Acromioclavicular joint degenerative disease with osteophytosis narrowing the supraspinatus outlet. Authenticated and [facility]
== END 2023-12-18 23:59 | disposition home or self-care (01) ==
LOC: RAD 16:35
PROVIDERS: PCP Nurse Practitioner Family; Visit Provider Nurse Practitioner Family
DX: M25.512 Pain in left shoulder (principal); M79.622 Pain in left upper arm; R20.0 Anesthesia of skin; R20.2 Paresthesia of skin
CPT/HCPCS: 73221

== ENCOUNTER 2024-01-30 09:49 | Outpatient (CLI) | payer MEDICARE, SELFPAY ==
[2024-01-30 17:30] LABS: Alanine Aminotransferase 42 U/L (12-78); Albumin Level 4.1 g/dl (3.5-5.0); Albumin/Globulin Ratio 1.8 (1.1-1.8); Alkaline Phosphatase 42 U/L (38-126); Anion Gap 12.9 mEq/L (5-15); Aspartate Amino Transferase 37 U/L (17-59); Bilirubin,Total 0.8 mg/dl (0.2-1.3); Blood Urea Nitrogen 14 mg/dl (9-20); Carbon Dioxide 22 mmol/L (22.0-30.0); Chloride 108 mmol/L (98-107); Chol/HDL Ratio 3.7 (1-3.5); Cholesterol 142 mg/dl (140-200); Estimated Glomerular Filt Rate 133 ml/min (>60); GFR (African American) 161 ML/MIN (>60); Globulin 2.3 g/dL (1.3-3.2); Glucose 84 mg/dl (74-100); HDL Cholesterol 38 mg/dl (40-60); Potassium 3.9 mmoL/L (3.5-5.1); Sodium 139 mmol/L (136-145); Total Protein,Serum 6.4 g/dl (6.3-8.2); Triglycerides 154 mg/dl (30-150); VLDL Cholesterol 31 mg/dL (0-40)
[2024-01-30 17:41] LABS: Direct LDL Cholesterol 71.34 mg/dL (100-129)
[2024-01-30 17:49] LABS: T4 (Thyroxine) 7.4 ug/dl (5.53-11.0)
[2024-01-30 18:00] LABS: Thyroid Stimulating Hormone 0.67 uIU/mL (0.465-4.68)
[2024-02-01 09:39] LABS: Triiodothyronine (T3) Free 3.1 pg/mL (2.0-4.4)
== END 2024-01-30 23:59 | disposition home or self-care (01) ==
LOC: LAB.DROPOF 01-31 12:50
PROVIDERS: PCP Nurse Practitioner Family; Visit Provider Nurse Practitioner Family
DX: E03.9 Hypothyroidism, unspecified (principal); E78.2 Mixed hyperlipidemia; I10 Essential (primary) hypertension
CPT/HCPCS: 80053; 80061; 84436; 84443; 84481

== ENCOUNTER 2024-04-18 11:55 | Day surgery (SDC) | payer MEDICARE, SELFPAY ==
--- NOTE | 2024-04-12 13:35 | SUR.PREOP ---
1335: LM on with call back number and time of arrival.
[2024-04-17 09:29] VITALS: BMI 30.1
[2024-04-18] MEDS: LACTATED RINGERS 1000ML 1,000 ML 25 ML IV (12:14)
[2024-04-18 12:20] VITALS: BP 140/88; PULSE 68; RESP 16; TEMP 36.1; O2SAT 97
--- NOTE | 2024-04-18 12:21 | P.PNANES_ITS ---
[facility] Disclaimer: The information contained in this section may have been updated after the patient was seen, as this information can be updated by other users. Medical History Coronary artery disease SNHL (sensorineural hearing loss) Impacted cerumen of right ear Hearing loss of right ear due to cerumen impaction Vertigo Tinnitus Hearing loss Snoring Daytime somnolence Restless sleeper Chest pain High coronary artery calcium score Agatston coronary artery calcium score greater than 400 Family history of heart disease HLD (hyperlipidemia) HTN (hypertension) GERD (gastroesophageal reflux disease) Surgical History Hx of heart artery stent Hx of colonoscopy S/P skin biopsy Family History Other Alcoholism Coronary artery disease Diabetes Hypertension Stroke Social History Smoking Status: Never smoker alcohol intake: current alcohol intake frequency: a few times a month substance use type: denies use current occupational status: retired Travel in the last 8 weeks: None household members: spouse housing: house marital status: caffeine: No [facility] Anesthesia Checklist Patient Identification Patient Identification: Arm Band and Verbal (Name & ) Structural Data Admitted From: Home Planned Operative Procedure/s: EGD Consent for Planned Operative Procedure(s) Verified: Yes Verified Documents: Surgical Consent and History and Physical NPO Status Verified Time NPO: 00:00 Additional verifications Anesthesia Reactions: No Airway Assessment Mallampati Score:: Class III C-Spine Mobility Assessed: Yes TMJ Mobility Assessed: Yes Dentition: Good Dentition Neurological Assessment Level of Consciousness: Awake Hx Seizures: No Numbness or tingling in extremities: No Anesthesia Plan Anesthesia Risk discussed: Yes Anesthesia Plan: Verified ASA Class: II Anesthesia Type: MAC
[2024-04-18 13:36] VITALS: O2SAT 100
--- NOTE | 2024-04-18 13:40 | EXP.HP ---
History of Present Illness *Admission Date: 04/18/24 *Reason for visit:: Chronic GERD *History of present illness: Mr. Farris is a 73-year-old gentleman with longstanding GERD and did have a barium swallow in 1986 who is here for diagnostic EGD. He has been on Prilosec as needed for years but over the last 3 years has taken this daily. He does have some cardiac and noncardiac chest pain. The cardiac chest pain resolved with coronary stents. The examination is deemed medically necessary for EGD. The patient has been seen, interviewed and examined prior to the procedure by both myself and the anesthesia provider. [facility] Disclaimer: The information contained in this section may have been updated after the patient was seen, as this information can be updated by other users. Medical History Coronary artery disease SNHL (sensorineural hearing loss) Impacted cerumen of right ear Hearing loss of right ear due to cerumen impaction Vertigo Tinnitus Hearing loss Snoring Daytime somnolence Restless sleeper Chest pain High coronary artery calcium score Agatston coronary artery calcium score greater than 400 Family history of heart disease HLD (hyperlipidemia) HTN (hypertension) GERD (gastroesophageal reflux disease) Surgical History Hx of heart artery stent Hx of colonoscopy S/P skin biopsy Family History Other Alcoholism Coronary artery disease Diabetes Hypertension Stroke Social History Smoking Status: Never smoker alcohol intake: current alcohol intake frequency: a few times a month substance use type: denies use current occupational status: retired Travel in the last 8 weeks: None household members: spouse housing: house marital status: caffeine: No Other Medical History Have you received the Flu Vaccine for this season: Yes Have you received the Pneumonia Vaccine: Yes Review of Systems Review of Systems Review of systems (narrative): Negative *Cardiovascular Comments: Negative *Gastrointestinal Comments: Negative *Genitourinary Comments: Negative *Musculoskeletal Comments: Negative *Neurologic Comments: Negative Meds Home Medications and Allergies Home Medications ?Medication ?Instructions ?Recorded ?Confirmed ?Type aspirin 81 mg tablet,delayed 81 mg PO DAILY Heart disease 03/08/19 04/18/24 History release flaxseed oil 1,000 mg capsule 1,000 mg PO DAILY Supplement 03/28/19 04/18/24 History cholecalciferol (vitamin D3) 50 2,000 unit PO DAILY Supplement 05/20/19 04/18/24 History mcg (2,000 unit) tablet multivitamin 1 each PO DAILY Supplement 10/21/20 04/18/24 History melatonin 5 mg tablet 5 mg PO HS Sleep 01/20/21 04/18/24 History sildenafil 50 mg tablet (Viagra) 50 mg PO DAILY PRN Erectile 03/23/22 04/18/24 History Dysfunction coenzyme Q10 100 mg capsule 200 mg PO DAILY Supplement 05/12/23 04/18/24 History (CoQ-10) magnesium citrate 100 mg capsule 100 mg PO DAILY 05/12/23 04/18/24 History nitroglycerin 0.4 mg sublingual 0.4 mg sublingual Q5M PRN chest 10/03/23 04/18/24 Rx tablet (Nitrostat) pain #30 tabs prasugrel 10 mg tablet (Effient) 10 mg PO DAILY #90 tabs 10/19/23 04/18/24 Rx levothyroxine 112 mcg tablet 112 mcg PO DAILY thyroid 90 days 01/30/24 04/18/24 Rx #90 tabs omeprazole 40 mg capsule,delayed 40 mg PO DAILY GERD #90 caps 01/30/24 04/18/24 Rx release metoprolol succinate 25 mg 25 mg PO DAILY bp #90 tabs 02/27/24 04/18/24 Rx tablet,extended release 24 hr rosuvastatin 20 mg tablet 20 mg PO DAILY hld 90 days #90 tabs 02/27/24 04/18/24 Rx clonazepam 0.5 mg tablet (Klonopin) 0.5 mg PO QHS PRN sleep 04/17/24 04/18/24 History New Prescriptions to Start Prescriptions: Allergies Allergy/AdvReac Type Severity Reaction Status Date / Time No Known Allergies Allergy Verified 04/18/24 12:17 Exam Data for Last 24 hours Vital signs and Labs for Last 24 Hours: Temp Pulse Resp BP Pulse Ox O2 Del Method 97.0 F L 68 16 140/88 97 Room Air 04/18/24 12:20 04/18/24 12:20 04/18/24 12:20 04/18/24 12:20 04/18/24 12:20 04/18/24 12:20 I & O for Last 24 hours: Intake & Output 04/15/24 04/16/24 04/17/24 04/18/24 23:59 23:59 23:59 23:59 Weight 210 lb *Routine HEENT Exam Head: Present normocephalic Eye: Present EOMI and PERRL ENT: Present mucous membranes moist *Routine Neck Exam Neck: Present supple *Routine Respiratory Exam Respiratory: Present CTA bilaterally *Routine Cardiovascular Exam Cardiovascular: Present RRR *Routine Abdominal Exam Abdominal: Present soft and normoactive bowel sounds; Absent tenderness *Routine Rectal Exam Rectal:: deferred *Routine Genitalia Exam Genitalia:: deferred *Routine Extremities Exam Extremities: Absent cyanosis, clubbing or edema *Routine Skin Exam Skin: Present warm; Absent rash *Routine Neurological Exam Neurological: Present alert and oriented X3 Assessment and Plan *Assessment and plan (1) GERD (gastroesophageal reflux disease): Status: Acute Category: Medical Code(s): K21.9 - Gastro-esophageal reflux disease without esophagitis (2) Non-cardiac chest pain: Status: Acute Category: Medical Code(s): R07.89 - Other chest pain Plan A/P: 1. Chronic GERD with no prior EGD and noncardiac chest pain is the preprocedural diagnosis. The patient will be anesthetized/sedated using MAC sedation. The patient has been seen and examined. Cardiac and lung assessment prior to the examination is stable. Proceed with planned EGD
--- NOTE | 2024-04-18 13:42 | P.PCN_ITS ---
[facility] Procedure Note Date: 04/18/24 Time: 13:49 Procedure Note:: Upper Endoscopy Procedure Report: Esophagogastroduodenoscopy with cold biopsies and TTS balloon dilation Endoscopost: Olegario Dalton II, MD Referring Physician: JJ Owusu/Axel You M.D. Date of Procedure: April 18, 2024 Equipment: Olympus GIF 190 standard upper endoscope Sedation: MAC sedation Indications: Mr. Farris is a 73-year-old gentleman with chronic GERD for nearly 40 years. He had a barium swallow in 1986. He has struggled with angina//cardiac chest pain and had 2 coronary stents placed and the patient is doing much better. However, he still gets some noncardiac chest pain which was felt related to his GERD. He does report retrosternal burning. He was taking Prilosec as needed for many years but has been on Prilosec daily for the last 3 years. He reports no bloating, belching or dyspepsia. He reports no family history of esophageal or gastric cancer. This is his first upper endoscopy. He does get some occasional dysphagia to liquids as much as solids. Procedure: Prior to the procedure, a history and physical exam was performed, and patient's medications and allergies were reviewed. The risks, benefits and alternatives of the sedation and procedure were discussed with the patient. All questions were answered and informed consent was obtained. The patient was brought to the procedure room. Patient identification and proposed procedure were verified by the physician and the nurse. The patient was placed in a left lateral decubitus position and the scope was passed under direct vision. Throughout the procedure, the patient's blood pressure, pulse, and oxygen saturations were monitored continuously. The upper GI endoscopy was accomplished without difficulty. The patient tolerated the procedure well. Findings: The scope was passed directly into the upper esophagus and advanced to the third portion of the duodenum. The post bulbar duodenum and duodenal bulb were normal with normal mucosa and conniventes. The scope was withdrawn through a normal duodenal bulb and pylorus into the stomach. There was linear reactive gastropathy of the antrum and body. There were a few gastric fundic gland polyps. Biopsies were taken from the antrum. One of the polyps was removed via cold biopsy. Upon retroflexion there was a very small sliding 1 to 2 cm hiatal hernia. The scope was then withdrawn into the esophagus. There was a serrated Z-line but no Aguero's esophagus. Biopsies were taken from the GE junction. There was no evidence of reflux esophagitis or Schatzki's ring. There were tertiary contractions and evidence of moderate esophageal dysmotility. The entire esophagus was dilated to 60 Uzbek/20 mm with a TTS hydrostatic balloon. There was mild resistance at the cricopharyngeus. The remainder of the esophageal mucosa was normal. Impression: 1. Nonerosive GERD with moderate esophageal dysmotility and very small sliding 1 to 2 cm hiatal hernia 2. Linear reactive gastropathy from bile reflux 3. Gastric fundic gland polyps Plan: I will follow-up the biopsies. I do feel the patient has some functional GERD and duodenal/bile reflux. Bile reflux can lead to increased spasm/esophageal dyskinesia. We will discuss treatment options.
[2024-04-18 13:53] VITALS: BP 125/66; PULSE 68; RESP 14; TEMP 36.1; O2SAT 92
[2024-04-18 14:03] VITALS: BP 142/92; PULSE 62; RESP 18; O2SAT 95
[2024-04-18 14:13] VITALS: BP 146/76; PULSE 60; RESP 18; O2SAT 98
[2024-04-18 14:23] VITALS: BP 125/83; PULSE 63; RESP 18; O2SAT 96
== END 2024-04-18 14:34 | disposition home or self-care (01) ==
PROVIDERS: PCP Nurse Practitioner Family; Visit Provider Internal Medicine Gastroenterology
PROC: 0DJ08ZZ Inspection of Upper Intestinal Tract, Via Natural or Artificial Opening Endoscopic (ICD-10-PCS; CPT 43235; principal; 2024-04-18 13:30)
DX: K21.9 Gastro-esophageal reflux disease without esophagitis (principal); R07.89 Other chest pain; K22.4 Dyskinesia of esophagus; K44.9 Diaphragmatic hernia without obstruction or gangrene; K31.9 Disease of stomach and duodenum, unspecified; K31.7 Polyp of stomach and duodenum
CPT/HCPCS: 43239; 43249; 88305; C1726; J7120

== ENCOUNTER 2024-07-15 08:20 | Outpatient (CLI) | payer MEDICARE, SELFPAY ==
[2024-07-15 09:44] LABS: Albumin Level 4.4 g/dl (3.5-5.0)
[2024-07-15 09:47] LABS: Alanine Aminotransferase 48 U/L (12-78); Alkaline Phosphatase 41 U/L (38-126); Aspartate Amino Transferase 45 U/L (17-59); Bilirubin,Indirect 0.4 mg/dL (0.0-0.9); Bilirubin,Total 0.4 mg/dl (0.2-1.3); Bilirubin,Unconjugated 0.4 mg/dL (0.0-1.1); Cholesterol 137 mg/dl (140-200); Total Protein,Serum 6.1 g/dl (6.3-8.2); Triglycerides 144 mg/dl (30-150); VLDL Cholesterol 29 mg/dL (0-40)
[2024-07-15 09:48] LABS: Chol/HDL Ratio 3.8 (1-3.5); HDL Cholesterol 36 mg/dl (40-60)
[2024-07-15 10:01] LABS: Direct LDL Cholesterol 70.77 mg/dL (100-129)
[2024-07-15 10:05] LABS: Triiodothryronine (T3) Uptake 37 % (23.5-40.5)
[2024-07-15 10:06] LABS: Free Thyroxine Index 2.6 ug/dL (5.93-13.13); T4 (Thyroxine) 6.9 ug/dl (5.53-11.0)
[2024-07-15 10:19] LABS: Thyroid Stimulating Hormone 1.94 uIU/mL (0.465-4.68)
== END 2024-07-15 23:59 | disposition home or self-care (01) ==
LOC: LAB 08:21
PROVIDERS: PCP Nurse Practitioner Family; Visit Provider Physician Assistant
DX: Z79.899 Other long term (current) drug therapy (principal); E78.5 Hyperlipidemia, unspecified; E03.9 Hypothyroidism, unspecified
CPT/HCPCS: 36415; 80061; 80076; 84436; 84443; 84479

== ENCOUNTER 2024-07-30 12:36 | Outpatient (CLI) | payer MEDICARE, SELFPAY ==
--- NOTE | 2024-07-30 | CA_ITS ---
APPROVED REPORT Exam: Exercise Treadmill Technologist: Di Brunner Ht: 5 ft 10 in Wt: 217 lbs BSA: 2.16 m2 HR: 68 bpm BP: 160/98 mmHg Stress Test Details Test: Exercise stress testing was performed using a Kike protocol. HR Resting HR: 68 bpm Max Heart Rate (APMHR): 148 bpm Max HR Achieved: 173 bpm Target HR (85% APMHR): 126 bpm % of APMHR: 117 Recovery HR: 85 bpm HR response to stress: Normal HR response to stress BP Resting BP: 160.0/98.0 mmHg Max BP: 229.0/101.0 mmHg Recovery BP: 167.0/92.0 mmHg BP response to stress: Abnormal hypertensive response to stress. ECG Resting ECG: Normal sinus rhythm Stress EC mm horizontal ST depression Clinical Exercise duration: 8:00 min Exercise capacity: 10.3 METs Overall Exercise Capacity for Age: Good Stress ECG Conclusion Patient walked 8 minutes. Test stopped due to chest pain, shortness of air. Symptoms: Chest pain Arrhythmias/Ectopy: SVT during stress; PAC's in recovery. ST-T Changes: ST depression of 1.0 mm Conclusion: Good exercise capacity. Equivocal ECG changes at peak stress. Hypertensive BP response to exercise. BP control is suggested. Myoview images are reported separately. Electronically signed by : Lorena Reaves MD 07/31/2024 12:06:15
--- NOTE | 2024-07-30 12:36 | NM_ITS ---
APPROVED REPORT Exam: Nuclear Stress Test Indication: Chest pain, HTN, High cholesterol, Family history, CAD Patient Location: Outpatient Stress Tech: Di Brunner [place] Tech:Josselin Rivero, ARRT, RT (R)(N) Ht: 5 ft 10 in Wt: 212 lbs HR: 68 bpm BP: 160/98 mmHg BSA: 2.14 m2 TID: 1.23 BMI: 30.4 History: Chest pain, HTN, High cholesterol, Family history, CAD Procedure: Patient exercised on Kike protocol 8:00 minutes and sec, resting heart rate 68 bpm, resting blood pressure 160/98 mmHg, with exercise maximum heart rate achived was 173 bpm which is 116 % of the maximum predicted heart rate and blood pressure was 229/101 mmHg. Test was stopped due to SOB. Patient has exercise capacity, achieved 10.3 METs of workload on treadmill, the blood pressure response to exercise was . Cardiac Stress and Resting SPECT Images: Cardiac Stress and Resting SPECT images were obtained using technetium 99m Myoview 31.7 mCi stress and 10.67 mCi at rest. Resting and stress imaging in supine and prone positions demonstrate no evidence of fixed or reversible perfusion defects. There is increase in transient ischemic dilatation ratio (TID 1.23), suggestive of possible multivessel disease or balanced ischemia. Gated imaging demonstrates normal global and regional LV systolic function. LVEF is calculated at 53%. Conclusion: No evidence of fixed or reversible perfusion defects. There is increase in transient ischemic dilatation ratio (TID 1.23), suggestive of possible multivessel disease or balanced ischemia. Gated imaging demonstrates normal global and regional LV systolic function. LVEF is calculated at 53%. Electronically signed by : Lorena Reaves MD 07/31/2024 11:55:07
--- NOTE | 2024-07-30 12:36 | CA_ITS ---
APPROVED REPORT EXAM: Comprehensive 2D, Doppler, and color-flow Echocardiogram Electronic Organ Technician: Kajal Villarreal CRT Ht: 5 ft 10 in Wt: 217lbs BSA: 2.16 BP: 142/86 mmHg Indications: Chest Pain, CAD, Hyperlipidemia, Hypertension/HDD, pedro, hx svt, stents x 2 2D Dimensions LA Volume 21.30 mL LA Volume Index 9.60 mL/m2 (M/F) 16-34 M-Mode Dimensions RVDd 2.50 cm (0.9-2.6) LA Diam 3.29 cm (1.9-4.0) LVDd 4.91 cm (3.5-5.7) LVDs 3.46 cm (3.5-5.7) IVSd 1.77 cm (0.6-1.1) PWd 0.93 cm (0.6-1.1) EF (Teich) 56.30% FS 29.50% EDV (Teich) 113.40 mL TAPSE 2.06 (<1.7) ESV (Teich) 49.50 mL LV Diastology E Decel Time 213 (160-240 msec) E/A Ratio 0.96 MED A' 13.70 cm/s LAT A' 11.10 cm/s Aortic Valve AO Peak GR. 6.20 mmHg Mitral Valve MV A Velocity 74.0 (40-130 cm/s) E/A Ratio 0.96 Pulmonary Valve PV Peak Velocity 131.0 (50-150 cm/s) Tricuspid Valve TR P. Velocity 227.00 cm/s RAP Estimate 10.00 mmHg RVSP 30.50 mmHg Left Ventricle The left ventricle is normal size. The left ventricular systolic function is normal. The left ventricular ejection fraction is within the normal range. There is increased LV wall thickness. There is normal LV segmental wall motion. The left ventricular diastolic function is normal. LVEF is 55%. Right Ventricle The right ventricle is normal size. The right ventricular systolic function is normal. Atria The left atrium size is normal. The right atrium size is normal. There is no Doppler evidence of interatrial shunt. Aortic Valve The aortic valve is mildly thickened. There is no aortic valvular stenosis. No aortic regurgitation is present. Mitral Valve The mitral valve is normal in structure. No evidence of mitral valve stenosis. Trace mitral regurgitation. Tricuspid Valve Tricuspid valve is grossly normal in structure and function. Trace tricuspid regurgitation. There is insufficient TR jet to estimate RVSP. Pulmonic Valve The pulmonary valve is normal in structure. Trace pulmonic regurgitation. Great Vessels The aortic root is normal in size. The ascending aorta is normal in size. IVC is normal in size and collapses >50% with inspiration. Pericardium There is no pericardial effusion. Other Information Study Quality: Fair Conclusion Normal biventricular systolic function. No significant valvular stenosis or regurgitation. Electronically signed by : Lorena Reaves MD 08/05/2024 00:01:31
[2024-07-30] MEDS: ISOTOPE MYOVIEW (PER STUDY) 1 DOSE IV (15:32)
[2024-07-30] MEDS: SODIUM CHLORIDE 0.9% 10ML SYR (RAD ONLY) 10 ML IV ×2 (15:32)
== END 2024-07-30 23:59 | disposition home or self-care (01) ==
LOC: RAD 12:36
PROVIDERS: PCP Nurse Practitioner Family; Visit Provider Physician Assistant
DX: I25.10 Atherosclerotic heart disease of native coronary artery without angina pectoris (principal); Z95.5 Presence of coronary angioplasty implant and graft; R93.1 Abnormal findings on diagnostic imaging of heart and coronary circulation; Z82.49 Family history of ischemic heart disease and other diseases of the circulatory system; E78.2 Mixed hyperlipidemia; K21.9 Gastro-esophageal reflux disease without esophagitis; I10 Essential (primary) hypertension
CPT/HCPCS: 78452; 93017; 93018; 93306; A9502

== ENCOUNTER 2024-08-09 09:43 | Outpatient (CLI) | payer MEDICARE, SELFPAY ==
--- NOTE | 2024-08-09 09:46 | CA_ITS ---
FINAL REPORT CLINICAL HISTORY: HTN FINDINGS: Aorta velocity: 106 cm/sec Right kidney: 11.5 cm. No evidence of hydronephrosis or mass. Right intrarenal RI: 0.42-0.52 Right renal artery velocity: 241 cm/sec. Right RAR (Renal artery-Aortic Ratio): 2.3 Left Kidney: 12.1 cm. No evidence of hydronephrosis or mass. Left intrarenal RI: 0.56-0.72 Left renal artery velocity: 254 cm/sec. Left RAR (Renal Artery-Aortic Ratio): 2.4 IMPRESSION: Moderate bilateral renal artery stenosis suspected. Consider CT angiogram or postcontrast MR angiogram. Reviewed, Interpreted and Dictated by Roxann Leach MD Transcribed by Nara Glass Authenticated and [facility]
== END 2024-08-09 23:59 | disposition home or self-care (01) ==
LOC: RT 09:44
PROVIDERS: PCP Nurse Practitioner Family; Visit Provider Physician Assistant
DX: I10 Essential (primary) hypertension (principal); I25.118 Atherosclerotic heart disease of native coronary artery with other forms of angina pectoris; R94.39 Abnormal result of other cardiovascular function study; E78.2 Mixed hyperlipidemia
CPT/HCPCS: 93976

== ENCOUNTER 2024-08-21 07:50 | Day surgery (SDC) | payer MEDICARE, SELFPAY ==
[2024-08-21] VITALS (15 sets, daily range): BP systolic 122–144; BP diastolic 64–88; PULSE 52–66; RESP 16–18; TEMP 36.9; O2SAT 96–99; BMI 31.2
--- NOTE | 2024-08-21 07:13 | IR_ITS ---
APPROVED REPORT Patient Location: Outpatient [facility] Clipping: DIMPLE Simon RT (R) PROCEDURES Left heart catheterization Left ventriculogram Selective coronary angiogram Bilateral selective renal angiography INDICATION Abnormal Myoview, Abnormal renal duplex, Suspected renal artery stenosis, Hypertension Informed consent was obtained prior to the procedure. COMPLICATIONS NONE Estimated Blood Loss: LESS THAN 10 ML TECHNIQUE One percent lidocaine was used to anesthetize the right groin. The right femoral artery was accessed via the Seldinger technique. A 4-Swedish sheath was placed in the right femoral artery. The JL-4 and JR-4 catheter was also used to perform left heart catheterization left ventriculogram and selective coronary angiogram. At the end of the procedure the patient was transferred to the post-op holding area in stable condition for arterial sheath removal. ANGIOGRAPHIC RESULTS The left main artery Normal The left anterior descending artery Has a stent in the proximal segment which is widely patent free of in-stent restenosis which extends into the mid segment which is also widely patent and has excellent proximal distal transitioning. A large first diagonal artery is widely patent The circumflex artery Is nondominant has stents in the proximal to mid segment which are widely patent with minimal in-stent restenosis The right coronary artery Large and dominant and has proximal 20 to 30% stenosis with mid vessel 10 to 20% stenosis and distal 20% stenosis The GARCIA ventriculogram reveals Preserved at 55% The left ventricular end-diastolic pressure 20 mmHg Right renal artery singular normal Left renal artery singular normal IMPRESSION Patent stents as described above with mild nonflow limiting disease as described above Preserved ejection fraction Mildly elevated LVEDP Normal renal arteries PLAN 1. Medical management Electronically signed by : Axel You MD 08/21/2024 15:28:23
[2024-08-21 08:25] LABS: Basophils % 0.8 % (0.1-2.0); Eosinophils # 0.3 K/mm3 (0.0-0.4); Eosinophils % 5.5 % (0.1-12.0); Hematocrit 46.9 % (42.0-52.0); Hemoglobin 16.5 g/dL (14.1-18.0); Lymphocytes # 1.1 K/mm3 (0.7-4.5); Lymphocytes % 22.6 % (10-50); Mean Corpuscular HGB Conc 35.2 g/dL (31.8-35.4); Mean Corpuscular Volume 90.9 fl (80-94); Mean Platelet Volume 11.3 fl (7.4-10.4); Monocytes # 0.6 K/mm3 (0.1-1.0); Monocytes % 11.8 % (1.7-9.3); Neutrophils # 2.9 K/mm3 (1.8-7.8); Neutrophils % 59.1 % (37.0-80.0); Platelet Count 132 K/mm3 (142-424); Red Blood Count 5.16 M/mm3 (4.60-6.20); White Blood Count 4.9 K/mm3 (4.8-10.8)
[2024-08-21 08:31] LABS: Chloride 108 mmol/L (98-107); Sodium 139 mmol/L (136-145)
[2024-08-21 08:34] LABS: Blood Urea Nitrogen 12 mg/dl (9-20); Calcium 9.2 mg/dl (8.4-10.2); Carbon Dioxide 25 mmol/L (22.0-30.0); Creatinine Clearance Estimated 93 mL/min (50-200); Estimated Glomerular Filt Rate 83 ml/min (>60); GFR (African American) 100 ML/MIN (>60); Glucose 100 mg/dl (74-100)
[2024-08-21] MEDS: LIDOCAINE 1% 10ML MDV 20 ML IJ (09:47)
[2024-08-21] MEDS: HEPARIN 1,000 UNITS/500ML NS (CATH LAB) 3000 UNIT IV (09:48)
[2024-08-21] MEDS: diphenhydrAMINE 50MG/ML VIAL 50 MG IV (09:49)
[2024-08-21] MEDS: 0.9 % SODIUM CHLORIDE 500 ML 25 ML IV (09:49)
[2024-08-21] MEDS: MIDAZOLAM HCL 1MG/ML 5ML VIAL 1 MG IV (10:25)
[2024-08-21] MEDS: FENTANYL 100MCG/2ML VIAL 50 MCG IV (10:25)
[2024-08-21] MEDS: IOPAMIDOL-370 (76%);100ML BOTTLE 50 ML IV (13:44)
== END 2024-08-21 14:55 | disposition home or self-care (01) ==
PROVIDERS: PCP Nurse Practitioner Family; Visit Provider Internal Medicine
DX: I25.118 Atherosclerotic heart disease of native coronary artery with other forms of angina pectoris (principal); I70.1 Atherosclerosis of renal artery; I10 Essential (primary) hypertension; E78.5 Hyperlipidemia, unspecified; R94.39 Abnormal result of other cardiovascular function study; Z95.5 Presence of coronary angioplasty implant and graft; Z82.49 Family history of ischemic heart disease and other diseases of the circulatory system; R93.1 Abnormal findings on diagnostic imaging of heart and coronary circulation; K21.9 Gastro-esophageal reflux disease without esophagitis; G47.33 Obstructive sleep apnea (adult) (pediatric)
CPT/HCPCS: 36252; 80048; 85025; 93458; 99152; C1725; C1769; J1200; J1644; J3010; Q9967

== ENCOUNTER 2024-08-28 11:23 | Outpatient (CLI) | payer MEDICARE, SELFPAY ==
--- NOTE | 2024-08-28 11:30 | CA_ITS ---
FINAL REPORT CLINICAL HISTORY: BRUISING RIGHT GROIN SINCE HAVING HEART CATH ON 08/21/24,PT ON BLOOD THINNER FINDINGS: DUPLEX DOPPLER RIGHT LOWER EXTREMITY TECHNIQUE: Axial and color Doppler waveform evaluation of the right common femoral artery and right groin was performed. FINDINGS: There is no evidence of right common femoral artery thrombosis or pseudoaneurysm. There is no fluid collection. There is a benign-appearing, normal size, right inguinal lymph node. IMPRESSION: No evidence of right common femoral artery thrombosis or pseudoaneurysm. Reviewed, Interpreted and Dictated by Noelle Dutta MD Transcribed by Kelsey Iraheta Authenticated and [facility]
== END 2024-08-28 23:59 | disposition home or self-care (01) ==
LOC: RT 11:23
PROVIDERS: PCP Nurse Practitioner Family; Visit Provider Nurse Practitioner
DX: M79.89 Other specified soft tissue disorders (principal); Z98.890 Other specified postprocedural states; Z95.5 Presence of coronary angioplasty implant and graft; Z79.01 Long term (current) use of anticoagulants
CPT/HCPCS: 93926

== ENCOUNTER 2024-09-01 12:11 | Outpatient (CLI) | payer MEDICARE, SELFPAY ==
[2024-09-01 17:47] LABS: Influenza A, PCR Not Detected (NotDetected); Influenza B, PCR Not Detected (NotDetected)
[2024-09-01 18:17] LABS: Coronavirus 19, PCR Detected (NotDetected)
== END 2024-09-01 23:59 | disposition home or self-care (01) ==
LOC: LAB.DROPOF 09-02 12:38
PROVIDERS: PCP Nurse Practitioner; Visit Provider Nurse Practitioner
DX: R50.9 Fever, unspecified (principal); R53.83 Other fatigue; R09.81 Nasal congestion
CPT/HCPCS: 87636

== ENCOUNTER 2025-02-14 10:07 | Outpatient (CLI) | payer MEDICARE, SELFPAY ==
[2025-02-14 14:55] LABS: Hematocrit 46.1 % (42.0-52.0); Hemoglobin 16.0 g/dL (14.1-18.0); Immature Granulocytes % 0.4 %; Mean Corpuscular HGB Conc 34.7 g/dL (31.8-35.4); Mean Corpuscular Hemoglobin 32.3 pg (27.0-31.2); Mean Corpuscular Volume 92.9 fl (80-94); Nucleated Red Blood Cells % 0 %; Platelet Count 151 K/mm3 (142-424); Red Blood Count 4.96 M/mm3 (4.60-6.20); Red Cell Distribution Width-SD 41.9 fL; White Blood Count 4.6 K/mm3 (4.8-10.8)
[2025-02-14 15:59] LABS: Hemoglobin A1C 5.6 % (4.0-6.0)
[2025-02-14 16:06] LABS: Alanine Aminotransferase 46 U/L (12-78); Albumin Level 4.4 g/dl (3.5-5.0); Albumin/Globulin Ratio 2.1 (1.1-1.8); Alkaline Phosphatase 46 U/L (38-126); Anion Gap 12.1 mEq/L (5-15); Aspartate Amino Transferase 44 U/L (17-59); Bilirubin,Total 0.8 mg/dl (0.2-1.3); Blood Urea Nitrogen 18 mg/dl (9-20); Calcium 8.9 mg/dl (8.4-10.2); Carbon Dioxide 23 mmol/L (22.0-30.0); Chloride 106 mmol/L (98-107); Cholesterol 135 mg/dl (140-200); Creatinine,Serum 0.90 mg/dl (0.66-1.25); Estimated Glomerular Filt Rate 83 ml/min (>60); GFR (African American) 100 ML/MIN (>60); Globulin 2.1 g/dL (1.3-3.2); Glucose 78 mg/dl (74-100); HDL Cholesterol 34 mg/dl (40-60); Magnesium 2.2 mg/dl (1.6-2.3); Potassium 4.1 mmoL/L (3.5-5.1); Sodium 137 mmol/L (136-145); Total Protein,Serum 6.5 g/dl (6.3-8.2); Triglycerides 161 mg/dl (30-150)
[2025-02-14 16:37] LABS: Thyroid Stimulating Hormone 0.87 uIU/mL (0.465-4.68)
[2025-02-14 16:56] LABS: Vitamin B12 651 pg/mL (239-931)
[2025-02-15 10:53] LABS: Triiodothyronine (T3) Free 3.2 pg/mL (2.0-4.4)
[2025-02-15 11:28] LABS: Insulin Level Total 19.3 uIU/mL (2.6-24.9)
--- OUTSIDE RECORDS SUMMARY | 2025-02-17 10:14 | XMS_ITS | Clinical Summary ---
Author Organization [facility] Address [address] [place] [address] Care Team Providers Care Database Security Expert Name Role Phone Gwendolyn Crenshaw APRN Primary Care Provider [phone] Allergies No known active allergies Medications omeprazole (priLOSEC) 40 MG capsule Take 1 capsule by mouth Daily. Active SYNTHROID 112 MCG tablet 1 tablet Daily. 04/11/2019 Active cholecalciferol (VITAMIN D3) 10 MCG (400 UNIT) tablet Take 1 tablet by mouth Daily. Active coenzyme Q10 100 MG capsule Take 1 capsule by mouth Daily. Active Flaxseed, Linseed, (FLAX SEED OIL) 1000 MG capsule Take by mouth Daily. Active Magnesium 250 MG tablet Take by mouth Daily. Active Melatonin 10 MG tablet Take by mouth Daily. Active Multiple Vitamins-Minera ls (MULTIVITAMIN ADULTS PO) Take by mouth Daily. Active clonazePAM (KlonoPIN) 0.5 MG tablet Take 0.5 tablets by mouth At Night As Needed. 04/16/2019 Active metoprolol succinate XL (TOPROL-XL) 50 MG 24 hr tablet Take 1 tablet by mouth 2 (Two) Times a Day. Active aspirin 81 MG EC tablet Take 1 tablet by mouth Daily. Active sildenafil (VIAGRA) 50 MG tablet As Needed. 01/18/2022 Active rosuvastatin (CRESTOR) 20 MG tablet Take 1 tablet by mouth Daily. Active prasugrel (EFFIENT) 10 MG tablet Take 1 tablet by mouth Daily. Active Active Problems Problem Noted Date Diagnosed Date Paroxysmal SVT (supraventricular tachycardia) Essential hypertension 01/29/2020 PVC's (premature ventricular contractions) 01/28 BERNARDINO (obstructive sleep apnea) 01/29/2020 Family History Medical History Relation Name Comments Heart disease Brother Glen Farris of stroke due to carotid and vertebral artery blockage in 2021 Hyperlipidemia Brother Glen Farris had double coronary bypass in 2019 Hypertension Brother Glen Farris Heart attack Father Juan Farris Heart disease Father Juan Farris at 69 of heart attack Hyperlipidemia Father Juan Farris had nearly complete blockage of coronary arteries Relation Name Status Comments Brother Glen Farris Father Juan Farris Mother Alive Social History Tobacco Use Types Packs/Day Years Used Date Smoking Tobacco: Never Smokeless Tobacco: Never Tobacco Cessation:Counseling Given: Not Answered Alcohol Use Standard Drinks/Week Comments Yes 4 (1 standard drink = 0.6 oz pur e alcohol) AUDIT-C Answer Date Recorded Frequency of Alcohol Consumption 4 or more times a week 07/03/2019 Average Number of Drinks 1 or 2 020 Frequency of Binge Drinking Not on file 06/06 Sex and Gender Information Value Date Recorded Sex Assigned at Male 08/22/2024 8:31 AM EDT Legal Sex Male 10:08 AM EST Gender Identity Not on file Sexual Orientation Straight 08/22/2024 8: 31 AM EDT Last Filed Vital Signs Vital Sign Reading Time Taken Comments Blood Pressure 130/78 08/28/2024 3:11 PM EDT Pulse 63 08/28/2024 3:11 PM EDT Temperature 37.1 C (98.7 F) 01/29/2020 3:05 PM EDT Respiratory Rate - - Oxygen Saturation 97% 08/28/2024 3:11 PM EDT Inhaled Oxygen Concentration - - Weight 99.2 kg (218 lb 9.6 oz) 08/28/2024 3:11 P M EDT Height 177.8 cm (5' 10 ) 08/28/2024 3:11 PM EDT Body Mass Index 31.37 08/28/2024 3:11 PM EDT Plan of Treatment Health Maintenance Due Date Last Done Comments BENITO 1997 COLON CANCER SCREENING 5 YEA R SIGMOIDOSCOPY [address] CT COLONOGRAPHY 1997 FECAL OCCULT BLOOD TEST 1997 FIT Testing (1 year) 1997 Pneumococcal Vaccine 50+ (1 of 1 - PCV) 2002 COLONOSCOPY 06/07/2017 06/07/2007 COLORECTAL CANCER SCREENING 06/07/2017 ZOSTER VACCINE (3 of 3) 08/31/2018 07/06/2018, 11/26 ANNUAL WELLNESS VISIT 07/02/2019 HEPATITIS C SCREENING 07/02/2019 TDAP/TD VACCINES (2 - Td or Tdap) 09/06/2020 011 COVID-19 Vaccine (7 - 2023-2 5 season) 2025 01/31/2024, 04/05/2023, 04/12/2022, Additional history exists INFLUENZA VACCINE 03/05/2025 01/31/2024, , 04/25/2023, Additional history exists Insurance [place] [id number] [employer] MED[employer]ARE [employer]AGE Care Teams Database Security Expert Relationship Specialty Start Date End Date Gwendolyn Crenshaw APRN [facility] [address] [address] [place] [id number] PCP - General Internal Medicine 08/28/24
--- OUTSIDE RECORDS SUMMARY | 2025-02-17 10:14 | XMS_ITS | Clinical Summary ---
Author Organization Healthcare Address [address] [place] [address] Care Team Providers Care Pest Control Operator Name Role Phone Gwendolyn Crenshaw APRN Primary Care Provider [phone] Family History Medical History Relation Name Comments Cardiac disorder Father Relation Name Status Comments Father Social History Tobacco Use Types Packs/Day Years Used Date Smoking Tobacco: Never Alcohol Use Standard Drinks/Week Comments Yes 0 (1 standard drink = 0.6 oz pure alcohol) Alcoholic Drinks/day: Social alcohol use Sex and Gender Information Value Date Recorded Sex Assigned at Not on file Legal Sex Male 6:30 PM EDT Gender Identity Not on file Sexual Orientation Not on file Last Filed Vital Signs Vital Sign Reading Time Taken Comments Blood Pressure - - Pulse - - Temperature - - Respiratory Rate - - Oxygen Saturation - - Inhaled Oxygen Concentration - - Weight 92.5 kg (203 lb 14.8 oz) 02/08/2017 3:01 PM EDT Height 177.8 cm (5' 10 ) 02/08/2017 3:01 PM EDT Body Mass Index 29.26 02/08/2017 3:01 PM EDT Plan of Treatment Not on file Care Teams Pest Control Operator Relationship Specialty Start Date End Date Gwendolyn Crenshaw APRN [address] [place] [id number] PCP - General 10/16/20
== END 2025-02-14 23:59 ==
LOC: LAB.DROPOF 02-17 10:08
PROVIDERS: PCP Nurse Practitioner Family; Visit Provider Nurse Practitioner Family
DX: E03.9 Hypothyroidism, unspecified (principal); I10 Essential (primary) hypertension; K21.9 Gastro-esophageal reflux disease without esophagitis; R73.9 Hyperglycemia, unspecified; Z12.5 Encounter for screening for malignant neoplasm of prostate; E78.5 Hyperlipidemia, unspecified
CPT/HCPCS: 80053; 80061; 82607; 83036; 83525; 83735; 84443; 84481; 85025; G0103